=== PATIENT | male | born 1970 | race American Indian/Alaskan Native ===

== ENCOUNTER 2017-03-17 12:07 | Emergency (ER) | payer MEDICAID ==
[2017-03-17 12:13] VITALS: BMI 30.8
[2017-03-17 12:18] VITALS: TEMP 98
[2017-03-17 12:37] LABS: BASO % 0.3 % (0.0-2.0); EOS # 0.3 K/uL (0.0-0.7); EOS % 3.2 % (0.0-4.0); HEMATOCRIT 37.6 % (35.0-51.0); LYMPH # 1.8 K/uL (1.0-4.3); LYMPH % 20.6 % (20.0-40.0); MEAN CORPUSCULAR HEMOGLOBIN 30.3 pg (27.0-31.0); MEAN CORPUSCULAR HGB CONC 32.5 g/dL (33.0-37.0); MEAN PLATELET VOLUME 7.9 fL (7.2-11.7); MONO # 0.8 K/uL (0.0-0.8); MONO % 9.1 % (0.0-10.0); RED CELL DISTRIBUTION WIDTH 13.8 % (11.5-14.5); WHITE BLOOD COUNT 8.8 K/uL (4.8-10.8)
[2017-03-17 12:45] LABS: CHLORIDE 100 mmol/L (98-107); SODIUM 140 mmol/L (132-148)
[2017-03-17 12:47] LABS: BILIRUBIN,TOTAL 0.4 mg/dL (0.2-1.3); CARBON DIOXIDE 30 mmol/L (22-30); GFR AFRICAN-AMERICAN > 60
[2017-03-17 12:48] LABS: ALB/GLOB RATIO 1.2 (1.0-2.1); ALKALINE PHOSPHATASE 62 U/L (38-126); ALT/SGPT 19 U/L (21-72); AST/SGOT 15 U/L (17-59); BLOOD UREA NITROGEN 9 mg/dL (9-20); CALCIUM 9.4 mg/dl (8.6-10.4); GLUCOSE,RANDOM 92 mg/dL (75-110); TOTAL PROTEIN 6.7 g/dL (6.3-8.3)
--- NOTE | 2017-03-17 12:53 | C.PDOC ---
History Of Present Illness 47 yr old male presents to the ER with complaints of epigastric pain and left sided chest pain for 1 day. Patient reports history of PE and is no longer on anticoagulants. Patient denies fever, chill, SOB, cough, nausea, vomiting, dysuria, weakness or numbness. Time Seen by Provider: 03/17/17 12:19 Chief Complaint (Nursing): Chest Pain History Per: Patient History/Exam Limitations: no limitations Onset/Duration Of Symptoms: Days (1) Current Symptoms Are (Timing): Still Present Past Medical History Reviewed: Historical Data, Nursing Documentation, Vital Signs Vital Signs: Last Vital Signs Temp 98 F 03/17/17 12:13 Pulse 97 H 03/17/17 15:06 Resp 14 03/17/17 15:06 BP 142/101 H 03/17/17 15:06 Pulse Ox 96 03/17/17 15:57 - Medical History PMH: Anxiety, CAD (possible), Deep Vein Thrombosis, HTN, Hypercholesterolemia, Pulmonary Embolism Family History: States: No Known Family Hx - Social History Hx Tobacco Use: Yes Hx Alcohol Use: Yes Hx Substance Use: Yes (sniffs heroin; last use was yesterday) - Immunization History Hx Tetanus Toxoid Vaccination: No Hx Influenza Vaccination: No Hx Pneumococcal Vaccination: No Review Of Systems Except As Marked, All Systems Reviewed And Found Negative. Constitutional: Negative for: Fever, Chills Cardiovascular: Positive for: Chest Pain (Left sided) Respiratory: Negative for: Cough, Shortness of Breath Gastrointestinal: Positive for: Abdominal Pain (Epigastric ). Negative for: Nausea, Vomiting Genitourinary: Negative for: Dysuria Neurological: Negative for: Weakness, Numbness Physical Exam - Physical Exam Appears: Non-toxic, No Acute Distress Skin: Warm, Dry Head: No Atraumatic, No Normacephalic Oral Mucosa: Moist Chest: Symmetrical, Tenderness (Point tenerness to the left anterior rib cage.) Cardiovascular: Rhythm Regular, No Murmur Respiratory: Normal Breath Sounds, No Rales, No Rhonchi, No Stridor, No Wheezing Gastrointestinal/Abdominal: Normal Exam, Soft, No Tenderness, No Guarding, No Rebound Extremity: Normal ROM, No Swelling Neurological/Psych: Oriented x3, Normal Speech, Normal Motor ED Course And Treatment - Laboratory Results Result Diagrams: 03/17/17 12:25 03/17/17 12:25 O2 Sat by Pulse Oximetry: 96 (RA) Pulse Ox Interpretation: Normal - Other Rad CXR X-Ray: Viewed By Me, Read By Radiologist Interpretation: PROCEDURE: CHEST RADIOGRAPH, 1 VIEW. HISTORY: chest pain. COMPARISON: None available. FINDINGS: LUNGS: Clear. Left hemidiaphragm is markedly elevated from indeterminate etiology. PLEURA: No pneumothorax or pleural fluid seen. CARDIOVASCULAR: Normal. OSSEOUS STRUCTURES: No significant abnormalities. VISUALIZED UPPER ABDOMEN: Normal. OTHER FINDINGS: None. IMPRESSION: No acute infiltrate or pleural effusion identified. Marked left hemidiaphragm elevation is identified up to the left hilum level. - CT Scan/US CT - Angio Chest Other Rad Studies (CT/US): Read By Radiologist, Radiology Report Reviewed CT/US Interpretation: Angio chest, CT abdomen and pelvis. Indication: Rule out PE. Technique: Contiguous axial images were obtained through the chest, abdomen, and pelvis with intravenous contrast enhancement. Sagittal and coronal reconstructions were generated and reviewed. CTA protocol was utilized for the chest. This CT exam was performed using 1 or more of the falling dose reduction techniques: Automated exposure control, adjustment of the MAA and/or kV according to patient size, and/or use of iterative reconstruction technique. IV Contrast: 100 cc Visipaque. . Radiation dose (DLP): 1753.77 MGy-cm. Comparison: Chest x-ray performed 03/17/17. Findings: Visualized portions of the inferior thyroid gland appear grossly unremarkable. The mediastinal and hilar vascular structures appear within normal limits. The heart appears within normal limits of size. No large central or segmental pulmonary embolus evident. No focal consolidation. No pleural effusion. No pneumothorax. No suspicious pulmonary nodules measuring greater than 5 mm. Marked elevation of the left hemidiaphragm. The liver, spleen, kidneys, atrophic pancreas, adrenal glands, and gallbladder appear otherwise grossly unremarkable. The stomach is nondistended. The bowel loops appear within normal limits of caliber without evidence of intestinal obstruction. There is no definite free air. The urinary bladder appears unremarkable. No acute osseous abnormality is detected. Impression: Marked elevation of the left hemidiaphragm. No large central or segmental pulmonary embolus identified. Medical Decision Making Medical Decision Making: PLAN: * CT - Angio Chest * CXR * EKG * Troponin * CBC * CMP Disposition - Disposition Referrals: [facility], [Non-Staff] - Disposition: HOME/ ROUTINE Disposition Time: 15:20 Condition: GOOD Additional Instructions: Thank you for letting us take care of you today. Your provider was Dr. Sheppard. You were treated for noncardiac chest pain. The emergency medical care you received today was directed at your acute symptoms. If you were prescribed any medication, please fill it and take as directed. It may take several days for your symptoms to resolve. Return to the Emergency Department if your symptoms worsen, do not improve, or if you have any other problems. Please contact your doctor or call one of the physicians/clinics you have been referred to that are listed on the Patient Visit Information form that is included in your discharge packet. Bring any paperwork you were given at discharge with you along with any medications you are taking to your follow up visit. Our treatment cannot replace ongoing medical care by a primary care provider (PCP) outside of the emergency department. Thank you for allowing the [facility] team to be part of your care today. Follow up with your doctor in 2-3 days for re-evaluation. Prescriptions: Ranitidine HCl [Zantac] 150 mg PO BID #20 tablet Instructions: Noncardiac Chest Pain (ED) Forms: [employer] (Welsh) - Clinical Impression Clinical Impression: Non-cardiac chest pain - Scribe Statement The provider has reviewed the documentation as recorded by the Laurent Haro Provider Attestation: All medical record entries made by the Palomoibsalud were at my direction and personally dictated by me. I have reviewed the chart and agree that the record accurately reflects my personal performance of the history, physical exam, medical decision making, and the department course for this patient. I have also personally directed, reviewed, and agree with the discharge instructions and disposition.
[2017-03-17] MEDS ORDERED: Iodixanol 320 MG/ML 100 ML BOTTLE IV ONE (13:29)
[2017-03-17 15:08] VITALS: BP 142/101; PULSE 97; RESP 14
--- NOTE | 2017-03-17 15:17 | CT ---
Angio chest, CT abdomen and pelvis. Indication: Rule out PE Technique: Contiguous axial images were obtained through the chest, abdomen, and pelvis with intravenous contrast enhancement. Sagittal and coronal reconstructions were generated and reviewed. CTA protocol was utilized for the chest. This CT exam was performed using 1 or more of the falling dose reduction techniques: Automated exposure control, adjustment of the MAA and/or kV according to patient size, and/or use of iterative reconstruction technique. IV Contrast: 100 cc Visipaque Radiation dose (DLP): 1753.77 MGy-cm. Comparison: Chest x-ray performed 03/17/17 Findings: Visualized portions of the inferior thyroid gland appear grossly unremarkable. The mediastinal and hilar vascular structures appear within normal limits. The heart appears within normal limits of size. No large central or segmental pulmonary embolus evident. No focal consolidation. No pleural effusion. No pneumothorax. No suspicious pulmonary nodules measuring greater than 5 mm. Marked elevation of the left hemidiaphragm. The liver, spleen, kidneys, atrophic pancreas, adrenal glands, and gallbladder appear otherwise grossly unremarkable. The stomach is nondistended. The bowel loops appear within normal limits of caliber without evidence of intestinal obstruction. There is no definite free air. The urinary bladder appears unremarkable. No acute osseous abnormality is detected. Impression: Marked elevation of the left hemidiaphragm. No large central or segmental pulmonary embolus identified.
[2017-03-17 15:54] VITALS: O2SAT 96
--- NOTE | 2017-03-17 20:05 | CARD ---
APPROVED REPORT EKG Measurement Heart [id number] <Conclusion> Normal sinus rhythm Normal ECG
== END 2017-03-17 16:03 | disposition home or self-care (01) ==
LOC: C.ER 12:07
DX: R07.89 Other chest pain (principal)
CPT/HCPCS: 71010; 71270; 74175; 80053; 82948; 84484; 85025; 93005; 99285; Q9967

== ENCOUNTER 2017-09-25 02:45 | Emergency (ER) | payer MEDICAID ==
[2017-09-25 02:46] VITALS: BMI 30.8
[2017-09-25] MEDS ORDERED: Tdap Vaccine 0.5 ml Vial (10-64 yrs) IM ONE ×2 (03:09→03:16)
[2017-09-25] MEDS ORDERED: Sodium Chloride 0.9% 1,000 ML IV ONE (03:29)
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
[2017-09-25] MEDS ORDERED: Sodium Chloride 0.9% 1,000 ML ONE (03:45)
[2017-09-25] MEDS ORDERED: Morphine 4 MG/ML VIAL ONE (03:45)
[2017-09-25 04:36] LABS: BASO % 0.3 % (0.0-2.0); EOS # 0.2 K/uL (0.0-0.7); EOS % 1.3 % (0.0-4.0); HEMOGLOBIN 11.4 g/dL (12.0-18.0); LYMPH # 2.4 K/uL (1.0-4.3); MEAN CORPUSCULAR HEMOGLOBIN 30.5 pg (27.0-31.0); MEAN CORPUSCULAR HGB CONC 33.7 g/dL (33.0-37.0); MEAN PLATELET VOLUME 7.3 fL (7.2-11.7); MONO # 1.1 K/uL (0.0-0.8); MONO % 9.1 % (0.0-10.0); NEUT # 8.8 K/uL (1.8-7.0); NEUT % 70.3 % (50.0-75.0); NRBC % 0.1 % (0.0-2.0); RBC 3.74 Mil/uL (4.40-5.90); RED CELL DISTRIBUTION WIDTH 13.7 % (11.5-14.5); WHITE BLOOD COUNT 12.5 K/uL (4.8-10.8)
[2017-09-25 04:38] LABS: MEAN CELL VOLUME 90.7 fL (80.0-94.0)
--- NOTE | 2017-09-25 04:54 | CT ---
EXAM: CT Head Without Intravenous Contrast CLINICAL HISTORY: 47 years old, male; Pain; Headache; Patient HX: 09-18-15 images sent; Additional info: Injury TECHNIQUE: Axial computed tomography images of the head/brain without intravenous contrast. All CT scans at this facility use one or more dose reduction techniques, viz.: automated exposure control; ma/kV adjustment per patient size (including targeted exams where dose is matched to indication; i.e. head); or iterative reconstruction technique. Coronal and sagittal reformatted images were created and reviewed. COMPARISON: CT - HEAD W/O CONTRAST 2015-09-18 20:35 FINDINGS: Brain: No intracranial hemorrhage. No mass. No edema. Ventricles: No hydrocephalus. Bones/joints: No calvarial fracture. Mastoid air cells: No mastoid effusion. IMPRESSION: 1. No intracranial hemorrhage. 2. See facial bone CT report for additional details.
--- NOTE | 2017-09-25 04:57 | CT ---
EXAM: CT Cervical Spine Without Intravenous Contrast CLINICAL HISTORY: 47 years old, male; Pain; Neck pain; Additional info: Injury TECHNIQUE: Axial computed tomography images of the cervical spine without intravenous contrast. All CT scans at this facility use one or more dose reduction techniques, viz.: automated exposure control; ma/kV adjustment per patient size (including targeted exams where dose is matched to indication; i.e. head); or iterative reconstruction technique. Coronal and sagittal reformatted images were created and reviewed. COMPARISON: No relevant prior studies available. FINDINGS: Vertebrae: No acute fracture. Straightening of cervical spine. Discs/spinal canal/neural foramina: [id number] degenerative disc disease within mid to lower cervical spine. Mild indentation thecal sac/cord mid and lower cervical spine. Soft tissues: Unremarkable. Lung apices: Mild mosaic pattern of lung parenchyma, nonspecific. Minimal bullous changes. IMPRESSION: 1. No fracture. 2. Incidental/non-acute findings are described above.
[2017-09-25 04:59] LABS: BLOOD UREA NITROGEN 13 mg/dL (9-20); GFR AFRICAN-AMERICAN > 60; GFR NON-AFRICAN AMERICAN > 60
--- NOTE | 2017-09-25 05:01 | CT ---
EXAM: CT Maxillofacial Without Intravenous Contrast CLINICAL HISTORY: 47 years old, male; Pain; Eye pain; Right; Additional info: Injury TECHNIQUE: Axial computed tomography images of the face without intravenous contrast. All CT scans at this facility use one or more dose reduction techniques, viz.: automated exposure control; ma/kV adjustment per patient size (including targeted exams where dose is matched to indication; i.e. head); or iterative reconstruction technique. Coronal and sagittal reformatted images were created and reviewed. COMPARISON: CT head, 09/18/2015 FINDINGS: Bones/joints: Deformity of nasal bones, chronic. No acute fracture. Soft tissues: Right periorbital soft tissue swelling. Dermal calcifications. Orbits: Minimal stranding within right orbit. Sinuses: Scattered minimal to mild mucosal thickening. No air-fluid levels. IMPRESSION: 1. No fracture. 2. Incidental/non-acute findings are described above.
--- NOTE | 2017-09-25 05:07 | CT ---
EXAM: CT Abdomen and Pelvis Without Intravenous Contrast CLINICAL HISTORY: 47 years old, male; Pain; Abdominal pain; Patient HX: 03-17-17 images sent; Additional info: Injury TECHNIQUE: Axial computed tomography images of the abdomen and pelvis without intravenous contrast. All CT scans at this facility use one or more dose reduction techniques, viz.: automated exposure control; ma/kV adjustment per patient size (including targeted exams where dose is matched to indication; i.e. head); or iterative reconstruction technique. Coronal and sagittal reformatted images were created and reviewed. COMPARISON: CT - ANGIO CHEST/ABDOMEN/PELVIS 2017-03-17 13:39 FINDINGS: Limitations: Lack of intravenous contrast. Motion artifact - mild. Lower thorax: Minimal atelectasis. Elevated LEFT hemidiaphragm. ABDOMEN: Liver: Unremarkable. Gallbladder and bile ducts: No calcified stones. No ductal dilation. Pancreas: Unremarkable. No ductal dilation. Spleen: No splenomegaly. Adrenals: No mass. Kidneys and ureters: Small calculus within LEFT kidney. No hydronephrosis. Stomach and bowel: No definite mural thickening. No obstruction. Appendix: No findings to suggest acute appendicitis. PELVIS: Bladder: Unremarkable. No stones. Reproductive: Unremarkable as visualized. ABDOMEN and PELVIS: Intraperitoneal space: No significant fluid collection. No free air. Bones/joints: No acute fracture. Soft tissues: Mild gynecomastia. Small ventral hernia containing fat. Vasculature: Mild atherosclerotic disease. No aneurysm. Lymph nodes: No pathologically enlarged lymph nodes. IMPRESSION: 1. No definite noncontrast CT evidence of visceral injury. 2. Incidental/non-acute findings are described above.
[2017-09-25 06:47] VITALS: TEMP 98.1
[2017-09-25 07:51] VITALS: RESP 18
[2017-09-25 09:15] VITALS: BP 135/86; PULSE 60
--- NOTE | 2017-09-25 10:22 | RAD ---
PROCEDURE: Radiographs of the Right Forearm HISTORY: Injury. COMPARISON: None available. TECHNIQUE: Frontal and lateral views obtained. FINDINGS: BONES: No definitive evidence of acute displaced fracture nor dislocation. The osseous structures intact. . Note is made however of a tiny corticated appearing bony density adjacent to the radial head which is seen on the lateral projection. This may represent some old posttraumatic mineralization as there are no significant anterior or obvious posterior joint effusions to suggest acute injury. JOINT SPACES: Unremarkable. OTHER FINDINGS: None. IMPRESSION: No acute fracture seen.
[2017-09-25 21:10] VITALS: O2SAT 94
== END 2017-09-25 09:23 | disposition home or self-care (01) ==
LOC: C.ER 02:45
DX: S00.83XA Contusion of other part of head, initial encounter (principal); S40.021A Contusion of right upper arm, initial encounter; Y08.89XA Assault by other specified means, initial encounter; Y92.89 Other specified places as the place of occurrence of the external cause; I10 Essential (primary) hypertension; E78.00 Pure hypercholesterolemia, unspecified; Z86.711 Personal history of pulmonary embolism; Z86.718 Personal history of other venous thrombosis and embolism; F17.210 Nicotine dependence, cigarettes, uncomplicated; Z23 Encounter for immunization
CPT/HCPCS: 70450; 70486; 72125; 73090; 74176; 80048; 82948; 85025; 90471; 90715; 96361; 96374; 99285; J2270; J7040

== ENCOUNTER 2018-03-14 22:28 | Emergency (ER) | payer MEDICAID ==
[2018-03-14 22:29] VITALS: BMI 30.8
[2018-03-14 22:33] VITALS: O2SAT 97
[2018-03-14 23:04] VITALS: BP 139/92; PULSE 95; RESP 19; TEMP 98.9
[2018-03-15] MEDS ORDERED: Lidocaine 1% Inj (20ml) IV ONE (00:18)
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
[2018-03-15] MEDS ORDERED: Bacitracin 500 Units/gm Oint Foilpak UD ONE (00:35)
[2018-03-15] MEDS ORDERED: Lidocaine Hydrochloride 5 ML INJ ONE (00:41)
--- NOTE | 2018-03-15 11:47 | RAD ---
Right hand 3rd digit three views History: Pain and bleeding. Comparison: None available. Findings: No evidence for acute displaced fracture or dislocation of the right hand 3rd digit. Visualized soft tissues are grossly preserved. Remainder of the visualized osseous structures demonstrate no evidence of acute displaced fracture or dislocation. Somewhat limited evaluation of the trapezium, trapezoid, and base of 4th metacarpal bone given suboptimal patient positioning and technique. Clinical correlation. Impression: Negative acute. If pain persists, consider correlation with CT.
--- NOTE | 2018-03-15 23:35 | CARD ---
APPROVED REPORT Date of service: 03/14/2018 EKG Measurement Heart [id number] <Conclusion> Normal sinus rhythm Nonspecific T wave abnormality Abnormal ECG
== END 2018-03-15 01:03 | disposition home or self-care (01) ==
LOC: C.ER 22:28
DX: S61.212A Laceration without foreign body of right middle finger without damage to nail, initial encounter (principal); Y04.0XXA Assault by unarmed brawl or fight, initial encounter; Y92.9 Unspecified place or not applicable

== ENCOUNTER 2018-09-25 00:31 | Emergency (ER) | payer MEDICAID ==
[2018-09-25 00:32] VITALS: BMI 30.8
--- NOTE | 2018-09-25 00:49 | C.PDOC ---
History Of Present Illness 48 year old male with a history of HTN, PE, DVT, presents to the emergency department with complaints shortness of breath which began one week ago, associated with exertion. Patient notes body aches, but denies chest pain, trauma, fall, leg swelling, fever, and chills. Patient states that he is non- compliant with his blood thinners which he is taking for PE and DVT ppx. He also notes body aches, Diffusely. No trauma or fall. Time Seen by Provider: 09/25/18 00:49 Chief Complaint (Nursing): Shortness Of Breath History Per: Patient History/Exam Limitations: no limitations Onset/Duration Of Symptoms: Other (one week ago) Current Symptoms Are (Timing): Still Present Current Respiratory Medications: Other (blood thinners) Associated Symptoms: Other (body aches). denies: Fever, Chills, Chest Pain, Ankle/Leg Swelling Past Medical History Reviewed: Historical Data, Nursing Documentation, Vital Signs Vital Signs: Last Vital Signs Temp 98.6 F 09/25/18 00:44 Pulse 89 09/25/18 00:44 Resp 16 09/25/18 00:44 BP 162/96 H 09/25/18 00:44 Pulse Ox 92 L 09/25/18 00:44 - Medical History PMH: Anxiety, CAD (possible), Deep Vein Thrombosis, HTN, Hypercholesterolemia, Pulmonary Embolism Surgical History: No Surg Hx Family History: States: No Known Family Hx - Social History Hx Tobacco Use: Yes Hx Alcohol Use: Yes Hx Substance Use: Yes (heroin) - Immunization History Hx Tetanus Toxoid Vaccination: No Hx Influenza Vaccination: No Hx Pneumococcal Vaccination: No Review Of Systems Constitutional: Negative for: Fever, Chills, Sweats, Weakness, Malaise Eyes: Negative for: Pain, Vision Change ENT: Negative for: Ear Pain, Ear Discharge, Nose Pain, Nose Congestion, Mouth Pain, Mouth Swelling Cardiovascular: Negative for: Chest Pain, Palpitations, Orthopnea Respiratory: Positive for: Shortness of Breath. Negative for: Cough, Hemoptysis, Pleuritic Pain, Sputum, Wheezing Gastrointestinal: Negative for: Nausea, Vomiting, Abdominal Pain, Diarrhea, Constipation, Melena, Hematochezia, Hematemesis Genitourinary: Negative for: Dysuria, Frequency, Incontinence, Hematuria, Penile Discharge, Scrotal Pain Musculoskeletal: Positive for: Other (body aches). Negative for: Neck Pain, Shoulder Pain, Leg Pain (swelling) Skin: Negative for: Rash, Lesions Neurological: Negative for: Weakness, Numbness, Incoordination Psych: Negative for: Anxiety, Depression Physical Exam - Physical Exam Appears: Well, Non-toxic, No Acute Distress Skin: Normal Color, Warm, Dry Head: Atraumatic, Normacephalic Eye(s): bilateral: Normal Inspection, PERRL, EOMI Ear(s): Bilateral: Normal Nose: Normal Oral Mucosa: Moist Tongue: Normal Appearing Lips: Normal Appearing Teeth: Normal Dentition Gingiva: Normal Appearing Neck: Normal, Normal ROM, Supple, Other (no meningeal signs) Chest: Symmetrical, No Tenderness Cardiovascular: Rhythm Regular, No Murmur Respiratory: Normal Breath Sounds, No Rales, No Rhonchi, No Wheezing Gastrointestinal/Abdominal: Normal Exam, Soft, No Tenderness, No Mass, No Distention, No Guarding Back: Normal Inspection, No CVA Tenderness, No Vertebral Tenderness Extremity: Normal ROM, No Tenderness, No Pedal Edema, No Swelling Extremity: Bilateral: Atraumatic Pulses: Left Dorsalis Pedis: Normal, Right Dorsalis Pedis: Normal Neurological/Psych: Oriented x3, Normal Speech, Normal Cognition ED Course And Treatment - Laboratory Results Result Diagrams: 09/25/18 01:12 09/25/18 01:12 O2 Sat by Pulse Oximetry: 92 (RA) Pulse Ox Interpretation: Abnormal Medical Decision Making Medical Decision Makin48 year old male with a history of HTN, PE, DVT, presents to the emergency department with complaints shortness of breath which began one week ago, associated with exertion. No fever, chills or night sweats. No fall or trauma. N o chest pain. No abdominal pain. No Leg swelling. ?PE given hx of PE. Plan: CT Angio Chest EKG BNP CMP CK Troponin I CBC Impression: PE EKG: Normal sinus rhythm at 76bpm. No STEMI. CT Angio: IMPRESSION: No demonstrated pulmonary embolism or arterial dissection. Moderate elevation of the left hemidiaphragm. Subsegmental atelectatic air space disease of the left lower lobe. 0446 labs, imaging largely unremarkable pt abmulated around ED w/ out desat 97%+ on RA and in NAD lung remain CTA b/l clear for d/c home with return indications and followup pt agreeable to plan. Disposition - Disposition Referrals: [facility] [Outside] [facility] [Outside] [facility] [Outside] Juice Juárez MD [Staff Provider] - Disposition: HOME/ ROUTINE Disposition Time: 03:52 Condition: GOOD Additional Instructions: LORI STEVENSON, thank you for letting us take care of you today. Your provider was Cameron Paz and you were treated for SHORTNESS OF BREATH. The emergency medical care you received today was directed at your acute symptoms. If you were prescribed any medication, please fill it and take as directed. It may take several days for your symptoms to resolve. Return to the Emergency Department if your symptoms worsen, do not improve, or if you have any other problems. Please contact your doctor or call one of the physicians/clinics you have been referred to that are listed on the Patient Visit Information form that is included in your discharge packet. Bring any paperwork you were given at discharge with you along with any medications you are taking to your follow up visit. Our treatment cannot replace ongoing medical care by a primary care provider outside of the emergency department. Thank you for allowing the [facility] team to be part of your care today. If you had an X-Ray or CT scan: A Radiologist will review the ED reading if any change in treatment is needed we will contact you. If you had a blood, urine, or wound culture: It will take several days for the results, if any change in treatment is needed we will contact you. If you had an STI test: It will take 48 hours for the results. Please call after 1 week if you have not heard back. Instructions: Shortness of Breath (Dyspnea) (DC) Forms: [facility] [employer] (Khmer) - Clinical Impression Clinical Impression: Shortness of breath - Scribe Statement The provider has reviewed the documentation as recorded by the Scribe (Augustine Rona) Provider Attestation: All medical record entries made by the Scribe were at my direction and personal ly dictated by me. I have reviewed the chart and agree that the record accurately reflects my personal performance of the history, physical exam, medical decision making, and the department course for this patient. I have also personally directed, reviewed, and agree with the discharge instructions and disposition.
[2018-09-25 00:53] VITALS: RESP 16; TEMP 98.6; O2SAT 92
[2018-09-25 01:16] LABS: BASO % 0.4 % (0.0-2.0); EOS # 0.3 K/uL (0.0-0.7); EOS % 3.4 % (0.0-4.0); HEMOGLOBIN 11.9 g/dL (12.0-18.0); LYMPH # 2.3 K/uL (1.0-4.3); LYMPH % 25.7 % (20.0-40.0); MEAN CELL VOLUME 95.4 fL (80.0-94.0); MEAN CORPUSCULAR HEMOGLOBIN 30.2 pg (27.0-31.0); MEAN CORPUSCULAR HGB CONC 31.7 g/dL (33.0-37.0); MEAN PLATELET VOLUME 7.7 fL (7.2-11.7); MONO # 0.6 K/uL (0.0-0.8); MONO % 7.1 % (0.0-10.0); NEUT # 5.7 K/uL (1.8-7.0); NEUT % 63.4 % (50.0-75.0); RBC 3.93 Mil/uL (4.40-5.90); RED CELL DISTRIBUTION WIDTH 14.7 % (11.5-14.5); WHITE BLOOD COUNT 8.9 K/uL (4.8-10.8)
[2018-09-25] MEDS ORDERED: Iodixanol 320 MG/ML 100 ML BOTTLE IV ONE (01:20)
[2018-09-25 01:26] LABS: ALB/GLOB RATIO 1.6 (1.0-2.1); ALBUMIN 4.3 g/dL (3.5-5.0); ALT/SGPT 24 U/L (21-72); AST/SGOT 32 U/L (17-59); BLOOD UREA NITROGEN 16 mg/dL (9-20); CALCIUM 8.6 mg/dl (8.6-10.4); GFR NON-AFRICAN AMERICAN > 60
[2018-09-25 01:38] LABS: B-TYPE NATRIURETIC PEPTIDE 42.7 pg/mL (0-450)
[2018-09-25 04:49] VITALS: BP 140/90; PULSE 70
--- NOTE | 2018-09-25 13:33 | CT ---
Date of service: 09/25/2018 PROCEDURE: CT Chest with contrast (Pulmonary Angiogram) HISTORY: SOB. History of pulmonary embolus. COMPARISON: None available. TECHNIQUE: Axial computed tomography images were obtained of the chest in the pulmonary arterial phase of enhancement. Coronal and sagittal reformatted images were created and reviewed. Intravenous contrast dose: Radiation dose: Total exam DLP = 686.13 mGy-cm. This CT exam was performed using one or more of the following dose reduction techniques: Automated exposure control, adjustment of the mA and/or kV according to patient size, and/or use of iterative reconstruction technique. FINDINGS: PULMONARY ARTERIES: The visualized pulmonary trunk, right and left main, lobar, segmental and proximal subsegmental branches of the pulmonary arteries are well opacified so far as can be seen with no definitive central filling defects identified to suggest acute central pulmonary embolus.. Pulmonary trunk measures 2.8 cm. AORTA: No acute findings. No thoracic aortic aneurysm. No aortic atherosclerotic calcification or mural plaque present. LUNGS: Marked elevation right hemidiaphragm due to eventration with ext superior extension of a mesenteric fat, stomach, as well as a few loops of small bowel and some of the distal transverse and descending colon. There is associated mild compressive type atelectasis left lung base. PLEURAL SPACES: Unremarkable. No effusion or pneumothorax. HEART: There is mediastinal right-sided mediastinal shift due to left diaphragmatic eventration. Heart is displaced to the right. Heart size is upper limits of normal.. No significant pericardial effusion. Ascending thoracic aorta measures 3.3 cm and descending thoracic aorta measures 2.5 cm. LYMPH NODES: No significant mediastinal or hilar adenopathy.. There is right-sided mediastinal shift felt to be secondary to the aforementioned large eventration left hemidiaphragm. Trachea is located just to the right of midline although is patent with no large central endoluminal lesions. There is a small hiatal hernia. BONES, CHEST WALL: Mild multilevel degenerative spondylosis of the thoracic spine. Minor chronic anterior wedge deformity of the T11 segment. Moderate changes of bilateral gynecomastia. The OTHER FINDINGS: Punctate nonobstructing calcification seen mid-lower pole left kidney IMPRESSION: No evidence of acute central pulmonary embolus. Marked eventration left hemidiaphragm with associated mild compressive type atelectasis left lung base and left to right mediastinal shift.
--- NOTE | 2018-09-27 14:24 | CARD ---
APPROVED REPORT Date of service: 09/25/2018 EKG Measurement Heart [id number] QT0T0 QTc0 <Conclusion> No QRS complexes found, no ECG analysis possible
== END 2018-09-25 05:01 | disposition home or self-care (01) ==
LOC: C.ER 00:31
DX: R06.02 Shortness of breath (principal)
CPT/HCPCS: 71275; 80053; 82550; 83880; 84484; 85025; 87804; 93005; 99284; Q9967